=== PATIENT | female | born 1940 | race Caucasian/White ===

== ENCOUNTER 2017-07-28 00:03 | Inpatient (IN) | payer MEDICARE, BC ==
--- NOTE | 2017-07-27 15:47 | EKG ---
FACILITY: [facility] [place] PATIENT NAME: ZULLY SHERMAN : [id number] MR: [id number] V: [id number] EXAM DATE: ORDERING PHYSICIAN: NAOMY SILVERIO TECHNOLOGIST: Hugo Lui Reason : Blood Pressure : / mmHG Vent. Rate : 077 BPM Atrial Rate : 077 BPM P-R Int : 180 ms QRS Dur : 074 ms QT Int : 408 ms P-R-T Axes : 058 017 038 degrees QTc Int : 461 ms Normal sinus rhythm with sinus arrhythmia Possible Left atrial enlargement No ST-T abnormalities No previous ECGs available Confirmed by RICCARDO NUGENT ([id number]) on 07/27/2017 5:19:49 PM Referred By: NAOMY SILVERIO Confirmed By:RICCARDO NUGENT
[2017-07-27 15:57] LABS: PLATELET COUNT, AUTOMATED 246 K/uL (150-450)
[~2017-07-28] VITALS: Ht 160 cm; Wt 63.0 kg
[2017-07-28] VITALS (13 sets, daily range): BP systolic 119–151; BP diastolic 70–90
[~2017-07-28 00:03] MED LIST: ALPR-429 PO; CHOL10005 PO; GLUC1TAB35 PO
[2017-07-28] MEDS ORDERED: FAMOTIDINE 20 MG TAB PO ONE (06:45)
[2017-07-28] MEDS ORDERED: NORMOSOL R SOLN(*) 1000 ML BAG 1,000 ML IV PRN (06:45)
[2017-07-28] MEDS ORDERED: LIDOCAINE/SOD BICARB 8.4% SYR ID ONE (06:45)
[2017-07-28] MEDS ORDERED: MIDAZOLAM 2 MG/2 ML VIAL IVP PRN (06:45)
[2017-07-28] MEDS ORDERED: ceFAZolin(*) 1 GM VIAL 1 GM, GENTAMICIN(*) 80 MG/2 ML VIAL 60 MG in NS 0.9% IRRIGATION ... IR ONE (06:45)
[2017-07-28] MEDS ORDERED: ceFAZolin(*) 1 GM VIAL 1 GM in NS(*) 0.9% 100 ML ADDVANT BAG 100 ML IVPB ONE (06:45)
[2017-07-28] MEDS ORDERED: FENTANYL/ROPIVACAINE 100ML BAG 100 ML EPI ONE (09:15)
[2017-07-28] MEDS ORDERED: ROPIVACAINE 0.5% 20 ML VIAL ONE (10:43)
[2017-07-28] MEDS ORDERED: PROPOFOL EMUL(*) 10MG/ML 20 ML 160 ML ONE (10:43)
[2017-07-28] MEDS ORDERED: NALOXONE HCL 0.4 MG/ML VIAL IVP PRN ×2 (11:45→11:50)
[2017-07-28] MEDS ORDERED: diphenhydrAMINE 25 MG CAP PO PRN (11:45)
[2017-07-28] MEDS ORDERED: FLUSH 10 ML SYR IVP PRN (11:50)
[2017-07-28] MEDS ORDERED: ZOLPIDEM TARTRATE 5 MG TAB PO PRN (11:50)
[2017-07-28] MEDS ORDERED: GLYCOPYRROLATE 0.2 MG/ML SDV IVP PRN (11:50)
[2017-07-28] MEDS ORDERED: HYDROmorphone PCA 6 MG/30 ML IV PRN (11:50)
[2017-07-28] MEDS ORDERED: BELLADONNA ALK/OPIUM 60MG SUPP PR PRN (11:50)
[2017-07-28] MEDS ORDERED: ALBUTEROL 1.25 MG/3ML NEB NEB PRN (12:00)
[2017-07-28] MEDS ORDERED: ROPIVACAINE IVPB ONE (15:30)
[2017-07-28] MEDS ORDERED: [UNRECOGNIZED DRUG - OTHER] IVPB ONE (15:30)
[2017-07-28] MEDS: cefTRIAXone(*) 1 GM VIAL 1 GM in NS(*) 0.9% 100 ML BAG 100 ML IVP SCH (16:22)
--- NOTE | 2017-07-28 17:17 | OPERATIVE REPORT 1 ---
EVENT DATE: July 28, 2017 SURGEON: Kelvin Melton MD ANESTHESIOLOGIST: Kelvin Moore MD ANESTHESIA: General ASSIST: Thomas Douglas MD PREOPERATIVE DIAGNOSES 1. Urethrocystocele. 2. Hematuria, etiology ? 3. Vaginal prolapse. 4. Enterocele. 5. Rectocele. POSTOPERATIVE DIAGNOSES 1. Urethrocystocele. 2. Hematuria, etiology ? 3. Vaginal prolapse. 4. Enterocele. 5. Rectocele. PROCEDURES PERFORMED 1. Cystourethroscopy. 2. Hydrodistention of the bladder. 3. Suprapubic cystoscopy. 4. Posterior colporrhaphy. 5. Bilateral sacrospinalis fixation. DESCRIPTION OF PROCEDURE Under general anesthetic, the patient was prepped and draped in the exaggerated lithotomy position. The urethra calibrated to approximately 34-Liberian. Examination revealed the vaginal prolapse. The cuff and the superior portion of the bladder extruded, as well as the total rectal area. The prolapse extended for approximately 2 inches beyond the introitus. The urethrovesical angle appeared to be relatively normal position. The 21 panendoscope was admitted through the urethra to the bladder. There were no demonstrable bladder lesions. The bladder was filled with gravity flow to a total of approximately 1000 mL. On drainage of the bladder, there was no bloody drainage. On reinspection of the bladder, there were no glomerulations. The bladder was refilled under gravity flow. The scope was removed. The Lowsley retractor curved was placed at approximately 1 inch cephalad to the symphysis pubis. The tissue was incised over the tip of the Lowsley retractor down to its connection to the bladder. The Lowsley retractor was delivered through the cystotomy out the skin. The 18-Liberian 30 mL balloon Callahan was grasped and delivered into the bladder. The cath was filled with 15 mL of solution. Cystoscopy revealed the catheter and the balloon to be in the bladder. No bleeding inside the bladder. The Callahan suprapubic tube was secured and clamped with a hemostat. The posterior fourchette was incised. The vagina was dissected off of the rectum cephalad all the way to the vaginal apex. The perirectal spaces were developed. Minimal bleeding was encountered, and it was controlled with spot coagulation. Jew of the vaginal cuff in the posterior cephalad position appeared to restore the vaginal position satisfactorily posteriorly, and then the anterior compartment appeared to be satisfactorily supported. The CV-0 [place]-Jimmie sutures were placed in the sacrospinalis ligament bilaterally , two on the right, one on the left. They appeared to be secured in the good tissue. The CV-0 [place]-Jimmie were driven through the posterior apical aspect of the vaginal cuff bilaterally. The posterior colporrhaphy was performed with an 0 PDS. This appeared to satisfactorily close the rectocele/vaginal prolapse defect. The CV-0 [place]-Jimmie was tied down, and again, the apical posterior positioning of the vagina appeared to be in proper position. There was a shelf that extended from the sutures tied down on the right across to the left of the left sacrospinalis suture ligature. The posterior colporrhaphy sutures were tied down. Two-plus fingers could be admitted into the vaginal introitus at completion of the posterior colporrhaphy. The perineum and the vaginal fourchette was closed with interrupted 3-0 chromic catgut suture and a running 3-0 Vicryl suture. Again, at conclusion of the posterior colporrhaphy and closure of the perineum and the vaginal introitus, two-plus fingers could be admitted transvaginally. A vaginal Betadine-soaked pack was placed vaginally, and the entire roll of Kerlix was easily reduced into the vaginal vault. Estimated blood loss less than 100 to 200 mL. The patient was stable throughout the procedure. The Foleys were put to gravity drainage. The urethral Callahan was secured to the right leg with absolutely no tension. The wound was cleaned and dressed in the usual fashion. The patient tolerated the procedure satisfactorily and returned to the recovery room in satisfactory condition. This is a 77-year-old white female complaining of vaginal prolapse. Vaginal examination revealed a urethrocystocele, first to second degree, mostly of first degree. She had an enterocele and a large rectocele with prolapse extending for approximately 2 inches beyond the introitus. Historically, the patient has treated her problem with a pessary for several years. The patient has been having increasingly more difficulty with prolapse and issues with the pessary. She requested examination. That has been performed. See notes for details. The patient also presented with a complaint of hematuria that was thought to be secondary to urinary tract infections. CT IVP was within normal limits, as was the preoperative cystoscopy. Urine cytology was negative. The patient returned to the recovery room in satisfactory condition. The patient will be ready for discharge home probably in two or three days, to force fluids with 2 L per day. Activities are restricted to careful ambulation. She is instructed on routine wound care and suprapubic tube and catheter care. The suprapubic cystostomy tube will be left indwelling for approximately two weeks. Careful inspection of the vaginal side and the rectal side revealed no clear enterocele. The enterocele was reduced (583) cephalad with the posterior dissection and the bilateral sacrospinalis fixation. The patient will be discharged home on Cipro, Pepcid, Motrin, and Vicodin therapy. She is to continue her usual medications. MTDD
[2017-07-28] MEDS: GENTAMICIN/NS 80 MG/100 ML PB 100 ML IVPB SCH (17:56)
[2017-07-28] MEDS ORDERED: NICOTINE POLACRILEX 2 MG GUM PO PRN (19:40)
[2017-07-28] MEDS: NEOMYCIN/POLYMYX/BACITR OINT 1 PACKET TP SCH (21:00)
[2017-07-28] MEDS: BENZALKONIUM CL 1:750 TOP SOLN TP SCH (21:00)
[2017-07-28] MEDS ORDERED: ALPRAZolam 1 MG TAB PO PRN (21:05)
[2017-07-28] MEDS: DOCUSATE SODIUM 100 MG CAP PO SCH (22:02)
[2017-07-28] MEDS: FAMOTIDINE 20 MG TAB PO SCH (22:02)
[2017-07-29] VITALS (12 sets, daily range): BP systolic 107–151; BP diastolic 55–79; Ht 160 cm; Wt 63.0 kg
[2017-07-29] MEDS: GENTAMICIN/NS 80 MG/100 ML PB 100 ML IVPB SCH ×2 (00:40→08:41)
[2017-07-29] MEDS: LR(*) 1000 ML BAG 1,000 ML IV PRN ×2 (00:40→10:56)
[2017-07-29] MEDS ORDERED: HYDROmorphone PCA 6 MG/30 ML IV PRN (06:10)
[2017-07-29] MEDS ORDERED: FUROSEMIDE 20 MG/2 ML VIAL IVP ONE ×2 (06:10→09:00)
[2017-07-29] MEDS: FAMOTIDINE 20 MG TAB PO SCH ×2 (08:39→21:08)
[2017-07-29] MEDS: ASPIRIN 81 MG CHEW PO SCH (08:39)
[2017-07-29] MEDS: ONDANSETRON 4 MG/2 ML VIAL IVP PRN ×2 (08:40→13:06)
[2017-07-29] MEDS: DOCUSATE SODIUM 100 MG CAP PO SCH ×2 (08:40→21:08)
[2017-07-29] MEDS: NEOMYCIN/POLYMYX/BACITR OINT 1 PACKET TP SCH ×2 (08:41→21:08)
[2017-07-29] MEDS: BENZALKONIUM CL 1:750 TOP SOLN TP SCH ×2 (08:41→21:00)
[2017-07-29] MEDS ORDERED: ONDANSETRON 4 MG/2 ML VIAL IVP PRN (13:45)
[2017-07-29] MEDS ORDERED: KETOROLAC 30 MG/ML VIAL IVP ONE (13:45)
[2017-07-29] MEDS ORDERED: ACETAMIN/CODEINE #3 300-30 MG PO PRN (13:50)
[2017-07-29] MEDS: ACETAMINOPHEN 325 MG TAB PO PRN ×2 (14:07→21:29)
[2017-07-29] MEDS ORDERED: NS(*) 0.9% 250 ML BAG 250 ML ONE (16:19)
[2017-07-29] MEDS: cefTRIAXone(*) 1 GM VIAL 1 GM in NS(*) 0.9% 100 ML BAG 100 ML IVP SCH (16:27)
[2017-07-29] MEDS: ALPRAZolam 0.5 MG TAB PO PRN (21:20)
[2017-07-30] VITALS (8 sets, daily range): BP systolic 119–169; BP diastolic 70–97
[2017-07-30] MEDS ORDERED: MAGNESIUM HYDROXIDE* 30ML UDCP PO PRN (07:40)
[2017-07-30] MEDS ORDERED: BISACODYL 10 MG SUPP PR PRN (07:40)
[2017-07-30] MEDS: ACETAMINOPHEN 325 MG TAB PO PRN ×2 (08:42→19:57)
[2017-07-30] MEDS ORDERED: FUROSEMIDE 20 MG/2 ML VIAL IVP ONE (09:00)
[2017-07-30] MEDS ORDERED: KETOROLAC 30 MG/ML VIAL IVP ONE ×2 (09:00→12:00)
[2017-07-30] MEDS: DOCUSATE SODIUM 100 MG CAP PO SCH ×2 (09:09→21:36)
[2017-07-30] MEDS: ASPIRIN 81 MG CHEW PO SCH (09:09)
[2017-07-30] MEDS: FAMOTIDINE 20 MG TAB PO SCH ×2 (09:09→21:36)
[2017-07-30] MEDS: NEOMYCIN/POLYMYX/BACITR OINT 1 PACKET TP SCH ×2 (12:40→21:00)
[2017-07-30] MEDS: BENZALKONIUM CL 1:750 TOP SOLN TP SCH ×2 (12:41→21:00)
[2017-07-30] MEDS: cefTRIAXone(*) 1 GM VIAL 1 GM in NS(*) 0.9% 100 ML BAG 100 ML IVP SCH (15:47)
[2017-07-30] MEDS: ALPRAZolam 0.5 MG TAB PO PRN (21:36)
[2017-07-31 03:21] VITALS: BP 144/84
[2017-07-31] MEDS: ACETAMINOPHEN 325 MG TAB PO PRN (03:30)
[2017-07-31 07:13] VITALS: BP 134/70
[2017-07-31] MEDS: BENZALKONIUM CL 1:750 TOP SOLN TP SCH (09:00)
[2017-07-31] MEDS ORDERED: HYDR-4308 PO (09:23)
[2017-07-31] MEDS ORDERED: DOCU100T19 PO (09:24)
[2017-07-31] MEDS ORDERED: KETOROLAC TROM 10MG TAB PO ONE (09:25)
[2017-07-31] MEDS ORDERED: IBUP600T22 PO (09:25)
[2017-07-31] MEDS ORDERED: FAMO20TA28 PO (09:26)
[2017-07-31] MEDS ORDERED: CIPR-214 PO (09:26)
[2017-07-31] MEDS: NEOMYCIN/POLYMYX/BACITR OINT 1 PACKET TP SCH (10:27)
[2017-07-31] MEDS: FAMOTIDINE 20 MG TAB PO SCH (10:27)
[2017-07-31] MEDS: ASPIRIN 81 MG CHEW PO SCH (10:27)
[2017-07-31] MEDS: DOCUSATE SODIUM 100 MG CAP PO SCH (10:27)
--- NOTE | 2017-08-01 04:28 | DISCHARGE SUMMARY ---
ADMISSION DIAGNOSES 1. Urethrocystocele. 2. Enterocele. 3. Rectocele. 4. Pelvic prolapse. DISCHARGE DIAGNOSES 1. Urethrocystocele. 2. Enterocele. 3. Rectocele. 4. Pelvic prolapse. ASSOCIATED DISEASES See history and physical. PROCEDURES 1. Cystourethroscopy. 2. Hydrodistension of the bladder. 3. Suprapubic cystostomy. 4. Reduction of enterocele. 5. Posterior colporrhaphy. 6. Bilateral sacrospinous fixation. CONDITION ON DISCHARGE Satisfactory. SUMMARY This is a 77-year-old white female complaining of vaginal prolapse. Patient has associated bowel dysfunction where she loses most of her directional pressure for defecation transvaginally. Examination confirmed. Options were discussed with the patient. She was agreeable to further evaluation and therapy. See operative note for details. Patient has done relatively well both intraoperatively and postoperatively. Patient is up and about, caring for herself satisfactorily and ready for discharge home, to force fluids, 2 liters per day. Activities are restricted to careful ambulation. Patient and daughter have been instructed on routine suprapubic and perineal care. Home health daily for cares as desired. Patient and daughter were shown how to change out the leg bag and the bedside drainage bag. Patient may shower as instructed. Patient was given a dose of Toradol prior to discharge. IV and [employer] were discontinued. DISCHARGE MEDICATIONS 1. [place]. 2. Colace. 3. Pepcid. 4. Motrin. 5. Cipro therapy. She is to continue her usual medications. MTDD
== END 2017-07-31 12:37 | disposition home or self-care (01) | DRG 748 ==
LOC: OR 00:03 → PED 13:26 → MED 07-29 15:30
PROC: 0T7B8ZZ Dilation of Bladder, Via Natural or Artificial Opening Endoscopic (ICD-10-PCS; 2017-07-28)
PROC: 0JQC0ZZ Repair Pelvic Region Subcutaneous Tissue and Fascia, Open Approach (ICD-10-PCS; 2017-07-28)
PROC: 0USGXZZ Reposition Vagina, External Approach (ICD-10-PCS; principal; 2017-07-28 07:45)
DX: N81.10 Cystocele, unspecified (principal); N81.5 Vaginal enterocele; N81.6 Rectocele; N81.89 Other female genital prolapse; R31.9 Hematuria, unspecified; Z87.891 Personal history of nicotine dependence
CPT/HCPCS: 36415; 81001; 82310; 82374; 82435; 82565; 82947; 84132; 84295; 84520; 85025; 87088; 93005; 97161; A4338; J0690; J0696; J1580; J1885; J1940; J2250; J2405; J2704; J2795; J3010; J7050; J7120; Q0163